=== PATIENT | female | born 1990 | race Caucasian/White ===

== ENCOUNTER 2018-04-30 09:00 | Inpatient (IN) | payer OTHER ==
[~2018-04-30] VITALS: Ht 160 cm; Wt 108.9 kg
== END 2018-05-23 12:36 | disposition home or self-care (01) | DRG 788 ==
LOC: OB/GYN 05-16 09:00 → O/R 05-20 05:57 → LDR 05-20 05:57 → EDBD 05-20 05:57 → LDR 05-20 15:25 → O/R 05-20 20:35 → OB/GYN 05-21 10:20
PROVIDERS: ADMIT Obstetrics & Gynecology
PROC: 3E033VJ Introduction of Other Hormone into Peripheral Vein, Percutaneous Approach (ICD-10-PCS; 2018-05-20)
PROC: 4A1HXCZ Monitoring of Products of Conception, Cardiac Rate, External Approach (ICD-10-PCS; 2018-05-20)
PROC: 10D00Z1 Extraction of Products of Conception, Low, Open Approach (ICD-10-PCS; principal; 2018-05-20 19:15)
PROC: 3E0P7VZ Introduction of Hormone into Female Reproductive, Via Natural or Artificial Opening (ICD-10-PCS; 2018-05-20 19:15)
DX: O61.0 Failed medical induction of labor (principal); O65.4 Obstructed labor due to fetopelvic disproportion, unspecified; Z3A.40 40 weeks gestation of pregnancy; Z37.0 Single live birth; Z22.330 Carrier of Group B streptococcus

== ENCOUNTER 2021-01-29 18:57 | Emergency (ER) | payer OTHER ==
[~2021-01-29] VITALS: Ht 160 cm; Wt 90.7 kg
[2021-01-29] MEDS ORDERED: [UNRECOGNIZED DRUG - OTHER] (19:29)
[2021-01-29] MEDS ORDERED: ZITHROMAX500 MG PO (23:07)
[2021-01-29] MEDS ORDERED: ZYRTEC10 MG PO (23:07)
== END 2021-01-29 23:14 | disposition home or self-care (01) ==
LOC: ER 18:57
DX: J06.9 Acute upper respiratory infection, unspecified (principal); J30.9 Allergic rhinitis, unspecified; Z03.818 Encounter for observation for suspected exposure to other biological agents ruled out

== ENCOUNTER 2021-11-06 08:35 | Outpatient (CLI) | payer OTHER ==
[~2021-11-06 08:35] MED LIST: ZITHROMAX500 MG PO; ZYRTEC10 MG PO; [UNRECOGNIZED DRUG - OTHER]
== END 2021-11-06 08:42 | disposition home or self-care (01) ==
LOC: RX STUDY 08:35
DX: E66.9 Obesity, unspecified (principal)

== ENCOUNTER 2023-01-15 19:33 | Emergency (ER) | payer OTHER ==
[~2023-01-15] VITALS: Ht 160 cm; Wt 81.2 kg
== END 2023-01-15 21:00 | disposition home or self-care (01) ==
LOC: ER 19:33
DX: R53.81 Other malaise (principal); Z98.891 History of uterine scar from previous surgery

== ENCOUNTER 2024-07-17 21:21 | Emergency (ER) | payer OTHER ==
[~2024-07-17] VITALS: Ht 162.6 cm; Wt 63.5 kg
[2024-07-17 23:05] LABS: HEMATOCRIT 35.5 % (36.0-45.00); HEMOGLOBIN 12.3 g/dL (12.0-15.00); MEAN CORPUSCULAR HEMOGLOBIN 30.2 pg (27.00-32.0); MEAN CORPUSCULAR HGB CONC 34.7 g/dl (32.0-36.0); PLATELET COUNT 239 K/uL (150-450); RED BLOOD COUNT 4.08 M/uL (4.00-6.00); RED CELL DISTRIBUTION WIDTH 13.4 % (11.5-14.5)
[2024-07-17] MEDS ORDERED: AMOXICILLIN500 MG PO (23:22)
[2024-07-17] MEDS ORDERED: KETOROLAC TROMETHAMINE 60 MG VIAL IM ONE (23:30)
[2024-07-17] MEDS ORDERED: CEFTRIAXONE SODIUM 1,000 MG VIAL IM ONE (23:30)
[2024-07-18] MEDS ORDERED: IBU600 MG PO (00:01)
== END 2024-07-18 00:34 | disposition home or self-care (01) ==
LOC: ER 21:23
PROVIDERS: Preventive Medicine Public Health & General Preventive Medicine
DX: J03.90 Acute tonsillitis, unspecified (principal)